=== PATIENT | male | born 1985 | race African-American/Black ===

== ENCOUNTER 2016-07-20 20:14 | Emergency (ER) | payer SELFPAY ==
[~2016-07-20] VITALS: Ht 190.5 cm; Wt 115.0 kg
[~2016-07-20 20:14] MED LIST: IBUP800T23 PO
[2016-07-20 20:16] VITALS: BP 148/82; PULSE 57; RESP 16; TEMP 99.1; O2SAT 98
[2016-07-20 20:50] VITALS: BP 139/78
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
== END 2016-07-20 21:38 | disposition home or self-care (01) ==
LOC: NEPD 20:14
DX: R03.0 Elevated blood-pressure reading, without diagnosis of hypertension (principal); R51 Headache; F17.210 Nicotine dependence, cigarettes, uncomplicated
CPT/HCPCS: 99283

== ENCOUNTER 2017-01-30 07:46 | Emergency (ER) | payer SELFPAY ==
[~2017-01-30] VITALS: Ht 188 cm; Wt 115.0 kg
[~2017-01-30 07:46] MED LIST changes: +IBUP1TAB7 PO; -IBUP800T23 PO
[2017-01-30 07:48] VITALS: BP 163/87; PULSE 73; RESP 16; TEMP 98.3; O2SAT 100
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
[2017-01-30 09:29] LABS: BLOOD, URINE NEG (NEG); COMMENT (UR) CULT NOT INDICATED; CULTURE IF INDICATED CULT NOT INDICATED; GLUCOSE,URINE NEG (NEG); KETONE, URINE NEG (NEG); MUCUS URINE FEW /lpf (OCC); NITRITE,URINE NEG (NEG); PH, URINE 5.5 (5.0-8.5); SQUAMOUS EPITHELIAL CELL URINE 2 /hpf (0-5); URINE COLOR YELLOW (YELLW/STRAW)
[2017-01-30 10:00] VITALS: BP 150/76; PULSE 76; RESP 17; TEMP 97.8; O2SAT 99
[2017-01-30] MEDS ORDERED: AZITHROMYCIN PWD FOR SUSP 1 GM PACKET PO ONE (12:00)
[2017-01-30] MEDS ORDERED: LIDOCAINE HCL 1% 50 ML VIAL IM ONE (12:00)
[2017-01-30] MEDS ORDERED: cefTRIAXone 250 MG VIAL IM ONE (12:00)
[2017-01-30 12:05] VITALS: BP 124/81; TEMP 97.8
== END 2017-01-30 12:06 | disposition home or self-care (01) ==
LOC: NEPE 07:46
DX: N45.1 Epididymitis (principal); R36.1 Hematospermia
CPT/HCPCS: 81001; 96372; 99284; J0696